=== PATIENT | male | born 1955 | race Caucasian/White ===

== ENCOUNTER 2019-08-31 13:23 | Emergency (ER) | payer MEDICAID ==
[~2019-08-31] VITALS: Ht 185.4 cm; Wt 106.6 kg
--- NOTE | 2019-08-31 13:24 | NUR ---
PT BIBA TAKEN TO BED 4
[2019-08-31 13:38] VITALS: BP 177/91
--- NOTE | 2019-08-31 13:38 | NUR ---
64 YO HOMELESS MALE BIBA C/C OF POSSIBLE INFECTION TO LEFT LOWER LEG AMPUTATION SITE. PT STATES THAT HE HAS HIS LEG AMPUTATED SEVEN MONTHS AGO BECAUSE OF AN INFECTION. PATIENT IS FEBRILE WITH A TEMP OF 100.7. THE LEG IS EDEMATOUS, RED, AND WARM TO TOUCH. THERE IS POSSIBLE NECROSIS AT INCISION SITE THE INCISION IS BLACK. PT STATES HE IS HAVING 5/10 ACHING PAIN AT THE SITE. DENIES ANY COUGH, AND SOB. PER REPORT OF EMS PTS HR WAS [address]. ER MD MADE AWARE. 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 SIDE RAILS X2. NO RX MED HX: PARANOID SCHIZOPHRENIA, HTN, ULCERS, PANCREATIC DISEASE NKA
[2019-08-31] MEDS ORDERED: AMPICILLIN/SULBACTAM 3 GM in NACL 0.9% 100 ML IV ONE ×2 (13:45→14:50)
[2019-08-31] MEDS ORDERED: AMPICILLIN/SULBACTAM 3 GM VIAL ONE ×2 (13:50→14:50)
--- NOTE | 2019-08-31 14:00 | NUR ---
PT REFUSED IV START, IV MEDICATION, AND LAB DRAW. PT STATES THAT HE CANT GET THE HELP HE NEEDS HERE AND WOULD LIKE TO CHECK OUT. ER MADE AWARE.
--- NOTE | 2019-08-31 14:15 | NUR ---
Patient verbalized understanding of risks of signing out against medical advice. Patient alert and oriented x 3 with decisional capacity and competence to sign out. Welcomed to come back to ER. Will be leaving with discharge paperwork. I spoke to admitting to assign pt emergency medical so he can obtain his RX.
--- NOTE | 2019-08-31 15:00 | NUR ---
AFTER BEING DISCHARGED AND WAITING FOR MEDICAL, THE PT DECIDED TO STAY IN THE ER AND RECIEVE ADVISED MEDICAL CARE.
--- NOTE | 2019-08-31 15:02 | NUR ---
RAD AT BEDSIDE
[2019-08-31 15:42] LABS: BASOPHILS % (AUTO) 0.3 % (0.0-2.0); EOSINOPHILS # (AUTO) 0.1 K/uL (0-0.4); EOSINOPHILS % (AUTO) 0.8 % (0.0-4.0); HEMATOCRIT 37.4 % (36-52); HEMOGLOBIN 12.2 g/dL (12.0-18.0); LYMPHOCYTES # (AUTO) 1.3 K/uL (2.0-11.5); LYMPHOCYTES % (AUTO) 10.8 % (20.5-51.1); MEAN CORPUSCULAR HEMOGLOBIN 28 pg (27-31); MEAN CORPUSCULAR HGB CONC 33 g/dL (33-37); MEAN CORPUSCULAR VOLUME 86.6 fL (80-94); MONOCYTES # (AUTO) 1.4 K/uL (0.8-1.0); MONOCYTES % (AUTO) 11.7 % (1.7-9.3); NEUTROPHILS % (AUTO) 76.4 % (42.2-75.2); PLATELET COUNT (AUTO) 319 K/uL (140-450); RED BLOOD CELL COUNT(AUTO) 4.32 MIL/uL (4.20-6.10); RED CELL DISTRIBUTION WIDTH 17.1 % (11.6-13.7); WHITE BLOOD COUNT (AUTO) 11.8 K/uL (4.8-10.8)
--- NOTE | 2019-08-31 15:45 | NUR ---
DURING INFUSION OF IV MEDICATION PT STATED THAT THEY WANTED TO LEAVE AND NO LONGER RECIEVE TREATMENT. PT AGREED TO WAIT 30 MIN TO LET THE ANTIBIOTICS FINISH.
[2019-08-31] MEDS ORDERED: ONDANSETRON 4 MG/2 ML VIAL IM/IVP PRN (15:50)
[2019-08-31] MEDS ORDERED: DOCUSATE SODIUM 100 MG GELCAP PO PRN (15:50)
[2019-08-31] MEDS ORDERED: ACETAMINOPHEN 325 MG TAB PO PRN (15:50)
[2019-08-31] MEDS ORDERED: HYDROcodone/APAP 5/325 MG 1 TAB TAB PO PRN (15:50)
[2019-08-31] MEDS ORDERED: NACL 0.9% 1,000 ML IV SCH (15:50)
[2019-08-31] MEDS ORDERED: MORPHINE SULFATE 2 MG/ML SYR IVP PRN (15:50)
[2019-08-31 15:56] LABS: APPEARANCE,URINE CLEAR (CLEAR); BILIRUBIN,URINE 1+ (NEGATIVE); BLOOD, URINE NEGATIVE (NEGATIVE); COLOR,URINE YELLOW (YELLOW); LEUKOCYTE ESTERASE ,URINE NEGATIVE (NEGATIVE); NITRITE, URINE NEGATIVE (NEGATIVE); PH,URINE 5.5 (5.0-9.0); UGLUCOSE NEGATIVE (NEGATIVE)
--- NOTE | 2019-08-31 16:02 | NUR ---
PT TOOK OUT HIS OWN IV BEFORE IV ANTIBIOTICS WERE FINISHED INFUSING AND STATED HE WAS LEAVING. I CLEANED AND BANDAGED HIS [facility] IV SITE AND PROVIDED HIM WITH HIS RX AND DISCHARGE INSTRUCTIONS.
--- NOTE | 2019-08-31 16:02 | NUR ---
Patient discharged with v/s stable. Written and verbal after care instructions given and explained. Patient alert, oriented and verbalized understanding of instructions. Wheel Chair Assisted. All questions addressed prior to discharge. ID band removed. Patient advised to follow up with PMD. Rx of KEFLEX given. Patient educated on indication of medication including possible reaction and side effects. Opportunity to ask questions provided and answered.
--- NOTE | 2019-08-31 16:02 | NUR ---
DR PARSON MADE AWARE OF PT LEAVING BEFORE MEDICATION COMPLETION AND IV BEING REMOVED BY PATIENT. RAC SKIN INTACT.
[2019-08-31 16:05] VITALS: BP 177/91
--- NOTE | 2019-09-03 08:15 | NUR ---
Late entry. Confirmed with RN that Unasyn completed at 1600
== END 2019-08-31 16:02 | disposition home or self-care (01) ==
LOC: MED 13:23
DX: L03.116 Cellulitis of left lower limb (principal); F17.210 Nicotine dependence, cigarettes, uncomplicated; I10 Essential (primary) hypertension; F20.9 Schizophrenia, unspecified
CPT/HCPCS: 36415; 73590; 80053; 81003; 85025; 87040; 93005; 96365; 99285; J0295